=== PATIENT | female | born 1950 | race Asian ===

== ENCOUNTER 2020-03-30 14:10 | Emergency (ER) | payer MEDICARE, OTHER ==
[~2020-03-30] VITALS: Ht 162.6 cm; Wt 71.8 kg
[2020-03-30] MEDS ORDERED: IBUPROFEN 400 MG TABLET PO ONE (18:15)
[2020-03-30 18:58] VITALS: BP 132/80
== END 2020-03-30 19:10 | disposition home or self-care (01) ==
LOC: EMS 14:13
DX: M54.10 Radiculopathy, site unspecified (principal); I10 Essential (primary) hypertension
CPT/HCPCS: 93005